=== PATIENT | female | born 1945 | race Caucasian/White ===

== ENCOUNTER 2024-03-12 14:06 | Inpatient (IN) ==
[2024-03-12 14:47] LABS: ABS Lymphocytes 1.8 10^3/uL (1.0-4.8); ABS Monocytes 0.6 10^3/uL (0.0-0.9); ABS Neutrophils 7.5 10^3/uL (1.5-7.6); ABS Nucleated RBC 0.01 10^3/ul; Eosinophil % 0.2 %; Hematocrit 46.5 % (35-45); Hemoglobin 15.6 g/dL (11.5-14.3); Lymphocyte % 18.1 %; Mean Corpuscular Hemoglobin 28.7 pg (27-33); Mean Corpuscular Hgb Conc 33.5 g/dL (31-36); Mean Corpuscular Volume 85.7 fL (80-97); Mean Platelet Volume 7.8 fL (7.5-11.2); Nucleated Red Blood Cells % 0.1 %/100WBC (0.0-0.8); Platelet Count 293 10^3/uL (150-450); Red Blood Count 5.42 10^6/uL (3.63-4.92); Red Cell Distribution Width 14.7 % (12-17); White Blood Count 9.9 10^3/uL (3.8-11.8)
[2024-03-12] MEDS: Iodixanol 320 (CONTRAST) 100 ML SDV IV ONE (14:48)
[2024-03-12 15:00] LABS: Activated Partial Thrombo Time 40.7 seconds (26.0-38.0); INR 1.51 (0.85-1.14)
[2024-03-12] MEDS: NS 0.9% 1000 ml BAG 1,000 ML IV ONE (15:07)
[2024-03-12 15:27] LABS: Albumin 4.8 g/dL (3.2-5.2); Albumin/Globulin Ratio 1.8 (1-3); Calcium 9.9 mg/dL (8.6-10.3); Creatinine, Serum 0.64 mg/dL (0.51-0.95); Direct Bilirubin 0.1 mg/dL (0.03-0.18); Globulin 2.7 g/dL (2-4); HDL Cholesterol 66.2 mg/dL; Indirect Bilirubin 0.5 mg/dL (0.3-1.0); Potassium 3.2 mmol/L (3.5-5.0); Total Bilirubin 0.6 mg/dL (0.2-1.0); Total Protein 7.5 g/dL (6.4-8.9); eGFR CKD-EPI 89.8 (>60)
[2024-03-12] MEDS ORDERED: Sulfur Hexaflouride MICROSPHR 25 MG VIAL IV PRN (15:52)
[2024-03-12] MEDS ORDERED: Metoprolol Tartrate 5 mg VIAL 5 ml VIAL (1 mg/ml) IV PRN (16:42)
[2024-03-12 17:02] LABS: Urine Appearance Clear; Urine Bilirubin Negative (Negative); Urine Blood Negative (Negative); Urine Color Colorless; Urine Glucose 1+ (>=70 mg/dL) (Negative); Urine Ketones Negative (Negative); Urine Nitrite Negative (Negative); Urine Protein Negative (Negative); Urine Specific Gravity 1.027 (1.002-1.030); Urine Urobilinogen Negative (Negative)
[2024-03-12 17:16] LABS: Magnesium 1.7 mg/dL (1.9-2.7)
[2024-03-12 17:16] LABS: HDL Cholesterol 61.1 mg/dL
[2024-03-12 17:31] LABS: TSH Ultra Thyroid Stim Horm 1.18 mcIU/mL (0.34-5.60)
[2024-03-12] MEDS: Magnesium Sulf 4 GM/100 ML IV 4,000 MG/100 ML BAG IVPB ONE (19:32)
[2024-03-12] MEDS: Potassium Chlor 20 meq TAB.ER PO ONE (22:29)
[2024-03-12] MEDS: KCL 20 MEQ/100 ML IVPREMIX 20 MEQ/100 ML BAG IV ONE (22:40)
[2024-03-13 06:00] LABS: ABS Lymphocytes 2.2 10^3/uL (1.0-4.8); ABS Monocytes 0.7 10^3/uL (0.0-0.9); ABS Neutrophils 5.5 10^3/uL (1.5-7.6); Eosinophil % 0.3 %; Hematocrit 43.2 % (35-45); Hemoglobin 14.2 g/dL (11.5-14.3); Lymphocyte % 26.1 %; Mean Corpuscular Hemoglobin 28.2 pg (27-33); Mean Corpuscular Hgb Conc 32.9 g/dL (31-36); Mean Corpuscular Volume 85.9 fL (80-97); Mean Platelet Volume 7.8 fL (7.5-11.2); Platelet Count 271 10^3/uL (150-450); Red Blood Count 5.03 10^6/uL (3.63-4.92); Red Cell Distribution Width 14.2 % (12-17); White Blood Count 8.5 10^3/uL (3.8-11.8)
[2024-03-13 06:26] LABS: Calcium 8.6 mg/dL (8.6-10.3); Creatinine, Serum 0.53 mg/dL (0.51-0.95); Magnesium 2.4 mg/dL (1.9-2.7); Potassium 3.9 mmol/L (3.5-5.0)
[2024-03-15 05:51] VITALS: BP 110/72
== END 2024-03-15 10:45 | disposition home or self-care (01) | DRG 66 ==
LOC: ED 14:06 → EDHOLD 14:06 → MEDTELE 21:18
PROVIDERS: ADMIT Student in an Organized Health Care Education/Training Program; ATTEND Student in an Organized Health Care Education/Training Program